=== PATIENT | male | born 1955 | race African-American/Black ===

== ENCOUNTER 2018-09-12 07:01 | Outpatient (CLI) | payer OTHER ==
[2018-09-12] VITALS (12 sets, daily range): BP systolic 107–121; BP diastolic 67–81
[~2018-09-12] VITALS: Ht 177.8 cm; Wt 104.3 kg
[2018-09-12] MEDS ORDERED: TIZA4TAB2 PO (08:14)
[2018-09-12] MEDS ORDERED: OLME1TAB23 PO (08:14)
[2018-09-12] MEDS ORDERED: OMEG1CAP6 PO (08:14)
[2018-09-12] MEDS ORDERED: NAPR-514 PO (08:14)
[2018-09-12] MEDS ORDERED: CHOL100013 PO (08:14)
[2018-09-12] MEDS ORDERED: MULT-697 PO (08:14)
[2018-09-12 08:42] LABS: BASO % 0 % (0-3); EOS # 0.2 x10^3/uL (0.0-0.7); EOS % 3 % (0-3); HEMOGLOBIN 15.9 g/dL (13.0-17.5); LYMPH # 1.5 x10^3/uL (1.0-4.8); LYMPH % 17 % (24-48); MEAN CORPUSCULAR HEMOGLOBIN 31 pg (25-35); MEAN CORPUSCULAR HGB CONC 34 g/dL (31-37); MEAN CORPUSCULAR VOLUME 91 fL (79-100); MONO # 0.6 x10^3/uL (0.0-1.1); MONO % 7 % (0-9); NEUT # 6.5 x10^3/uL (1.8-7.7); NEUT % 74 % (31-73); PLATELET COUNT 204 x10^3/uL (140-400); RED BLOOD COUNT 5.18 x10^6/uL (4.30-5.70); WHITE BLOOD COUNT 8.8 x10^3/uL (4.0-11.0)
[2018-09-12] MEDS ORDERED: fentaNYL PF VIAL 100 MCG/2 ML VIAL ONE (08:45)
[2018-09-12] MEDS ORDERED: LIDOCAINE WITH 8.4% SOD BICARB 3 ML DISP.SYRIN. ONE (08:45)
[2018-09-12] MEDS ORDERED: MIDAZOLAM HCL/PF 5 MG/5 ML VIAL. ONE (08:45)
[2018-09-12 09:04] LABS: PROTHROMBIN TIME PATIENT 12.6 SEC (11.7-14.0)
[2018-09-12] MEDS ORDERED: fentaNYL PF VIAL 100 MCG/2 ML VIAL IV ONE (09:15)
[2018-09-12] MEDS ORDERED: LIDOCAINE WITH 8.4% SOD BICARB 3 ML DISP.SYRIN. IJ ONE (09:15)
[2018-09-12] MEDS ORDERED: MIDAZOLAM HCL/PF 5 MG/5 ML VIAL. IV ONE (09:15)
--- NOTE | 2018-09-12 15:40 | RAD ---
EXAM: Chest, single view. HISTORY: Lung biopsy. COMPARISON: None. FINDINGS: A frontal view of the chest is obtained. There is a left upper lobe mass with suspected spiculated margins and extension to the overlying pleural, measuring 5.7 cm radiographically. No consolidation, pleural effusion or pneumothorax is seen. The heart is normal in size. IMPRESSION: Left upper lobe mass. Correlate with reported recent lung biopsy pathology findings and prior imaging. There is no available comparison study at the time of dictation. Electronically signed by: Alejandra Cortes MD (09/12/2018 3:37 PM) [place] [id number]
--- NOTE | 2018-09-13 07:50 | RAD ---
09/13/2018 7:44 AM Procedure: CT-guided biopsy, left upper lobe mass Indication: Left upper lobe mass extending from the hilum to the lung periphery Consent: The procedure was explained in its entirety to the patient or the patients designated collections representative by a member of the treatment team, including a discussion of the risks, benefits and commonly accepted alternatives to the procedure, as well as the expected consequences of no therapy whatsoever. Discussion of the risks included, but was not limited to, those that are most frequent and those that are rare but possibly severe or life-threatening, as well as the possibility of unforeseen complications. All elements of maximal sterile barrier technique including the use of a cap, mask, sterile gown, sterile gloves, large sterile sheet, appropriate hand hygiene, and 2% chlorhexidine for cutaneous antisepsis (or acceptable alternative antiseptic per current guidelines) were followed for this procedure. CT imaging was obtained redemonstrating the mass. Left upper chest prepped and draped using sterile barrier technique. 1% lidocaine was administered for anesthesia. Under intermittent CT guidance 17-gauge needles advanced mass. Core biopsy samples were obtained. [place] removed. Sterile dressings were applied. Sedation The procedure was performed under conscious sedation, including continuous cardiopulmonary monitoring via a dedicated sedation nurse. Face to face sedation time : 25 minutes Impression: CT-guided biopsy, left upper lobe mass PQRS Compliance Statement: One or more of the following individualized dose reduction techniques were utilized for this examination: 1. Automated exposure control 2. Adjustment of the mA and/or kV according to patient size 3. Use of iterative reconstruction technique
--- NOTE | 2018-09-13 15:07 | PATHOLOGY ---
[facility] Accession Number: [id number] . 01 Material submitted: . lung - LEFT LUNG MASS. Modifiers: left . 01 Clinical history: . Left lung mass upper lobe . 02 Diagnosis: Left lung mass, CT-guided needle biopsy: - ADENOCARCINOMA, MODERATELY WELL DIFFERENTIATED, WITH ASSOCIATED PULMONARY SCAR. SEE COMMENT. . (JPM:mml; 09/13/2018) [facility]/09/13/2018 . 02 Comment: Sections of the left lung mass CT-guided needle biopsy reveal a malignant epithelial neoplasm. The neoplasm is comprised of irregular glands, which infiltrate a pulmonary scar showing focal chronic inflammation and anthracotic pigment deposition. The neoplasm also focally has a papillary architecture. The malignant cells have modest amounts of eosinophilic cytoplasm, and possess enlarged, rounded to ovoid, nuclei containing small nucleoli. There is no normal lung parenchyma identified. 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 The case is also examined by Dr. Ciro Jimenez, who concurs with the diagnosis. . (JPM:mm; 09/13/2018) . 02 Electronically signed: . Roderick Proctor MD, Pathologist NPI- [id number] . 01 Gross description: . The specimen is received in formalin, labeled "Arnoldo Lopez, left lung biopsy". Received are multiple segments of pale hernandez to white-hernandez, friable soft tissue measuring 1.0 x 0.3 x 0.1 cm in aggregate dimensions. The specimen is filtered and entirely submitted in cassette A1. (CAA; 09/12/2018) QAC/QAC . 02 Pathologist provided ICD-10: C34.92 . 02 CPT . 042735 Specimen Comment: A courtesy copy of this report has been sent to Specimen Comment: [phone], . Specimen Comment: Report sent to / DR ISRAEL Performed at: [address], [place] [id number] MD Spencer Cheung MD Phone: [phone] [facility]formed [facility]: [facility] [address] [place], [place] [id number] MD Roderick Proctor MD Phone: [phone]
== END 2018-09-12 12:15 | disposition home or self-care (01) ==
LOC: INTRAD 07:01
PROVIDERS: ATTEND Internal Medicine Pulmonary Disease
DX: C34.92 Malignant neoplasm of unspecified part of left bronchus or lung (principal); Z79.01 Long term (current) use of anticoagulants
CPT/HCPCS: 32405; 36415; 71045; 77012; 85025; 85610; 85730; 88305; J2250; J3010; 99152

== ENCOUNTER 2018-09-29 09:52 | Day surgery (SDC) | payer OTHER ==
[~2018-09-29 09:52] MED LIST: CHOL100013 PO; HYDROmorphone 2 MG/ML VIAL IV PRN; IV RINGERS,LACTATED 1000ML 1,000 ML IV SCH; LIDOCAINE 1% PF 2 ML VIAL. ID PRN; MIDAZOLAM HCL/PF 2 MG/2 ML VIAL. ONE; MORPHINE SULFATE 2 MG/ML VIAL. IV PRN; MULT-697 PO; NAPR-514 PO; OLME1TAB23 PO; OMEG1CAP6 PO; ONDANSETRON PF 4 MG/2 ML VIAL. IV PRN; PROCHLORPERAZINE 10 MG/2 ML VIAL. IV PRN; PROPOFOL 50 ML IV ONE; TIZA4TAB2 PO; fentaNYL PF VIAL 100 MCG/2 ML VIAL IV PRN; fentaNYL PF VIAL 100 MCG/2 ML VIAL ONE
[2018-09-29] MEDS ORDERED: GADOTERATE 5 MMOL/10ML VIAL. IVP ONE ×2 (12:15)
[2018-09-29] MEDS ORDERED: GADOTERATE 5 MMOL/10ML VIAL. ONE ×2 (12:30)
--- NOTE | 2018-09-29 13:01 | RAD ---
PET ONCOLOGY CLINICAL INDICATION: Left lung lesion.. PET for initial treatment strategy. FDG PET-CT of the Body TECHNIQUE: The patient received an IV injection of 14.9 mCi 18F-FDG in the left antecubital fossa. After an initial uptake phase of approximately 60-90 minutes, a CT scan without oral contrast, without IV contrast was acquired. Subsequently, positron emission tomography images from the skull base to mid thigh were obtained. CT, PET and fused images were reconstructed in transaxial, coronal, and sagittal projections and interpreted from a workstation. The patient's plasma glucose was 120 mg/dl. PRIOR STUDIES: No prior studies CORRELATIVE STUDIES: There are no appropriate correlative studies FINDINGS: CT: Please note that CT is obtained for anatomic correlation. Limited exam due to lack of IV contrast. Noncontrast appearance of the visualized sections through the brain and orbits are within normal limits. Contrast appearance of the nasopharynx, oropharynx and hypopharynx within normal limits. No enlarged deep cervical adenopathy. Noncontrast appearance of the submandibular glands, parotid glands and thyroid within normal limits. Redemonstrated is a large area of consolidation in the left upper lobe extending to the pleura measuring 8.1 x 5.8 cm. Also extends to the left hilum. 3 mm nodule in the right lower lobe anteriorly (series 3 image 101). 1.6 x 0.9 cm right axillary lymph node is seen. Multiple mediastinal lymph nodes are seen, the largest measuring 1.5 x 1.4 cm. Evaluation of hilar lymphadenopathy is limited due to lack of IV contrast. Noncontrast appearance of the liver, spleen, pancreas, adrenals and kidneys within normal limits. Gallstone noted. No enlarged retroperitoneal or pelvic adenopathy. No free pelvic fluid or ascites. Prostate is nonenlarged. No bowel obstruction. Normal appendix. Urinary bladder demonstrates no radiopaque stone. No suspicious bony lesion. PET: Mild increased pelvic activity seen in the left upper lobe masslike consolidation with SUV max of 5.0. Mildly increased metabolic activity seen in the left hilum likely in a lymph node with SUV max of 3.4. IMPRESSION: PET-CT from the skull base to mid thigh demonstrates: 1. Mild increased metabolic activity in the left upper lobe masslike consolidation. Clinically correlate with biopsy results. 2. Mild increased metabolic activity in the left hilum likely intramammary lymph node which may be reactive or metastatic. Electronically signed by: Valdemar Ayala DO (09/29/2018 12:58 PM) [facility]
[2018-09-29 13:15] VITALS: BP 130/79
--- NOTE | 2018-09-29 14:03 | RAD ---
BRACHIAL PLEXUS WO/W CHEST History: Left posterior shoulder pain. History of lung cancer. Technique: Multiplanar multisequence MRI of the brachial plexus without and with contrast. Contrast: 20 mL Dotarem. Comparison: PET/CT September 29, 2018 Findings: No evidence of pathologic signal abnormality or enhancement along the course of the left brachial plexus. No pathologic lymphadenopathy or mass. Left upper lobe consolidation, better characterized on dedicated PET/CT performed the same day. No evidence of chest wall invasion. No involvement of the adjacent ribs. Multilevel poorly characterize degenerative changes of the cervical spine. No pathologic marrow replacing process. Impression: 1. No pathologic signal abnormality or enhancement along the left brachial plexus. 2. Left upper lung consolidative mass. See dedicated PET CT for further details. Electronically signed by: Bk Lake DO (09/29/2018 2:00 PM) [id number]
== END 2018-09-29 13:44 | disposition home or self-care (01) ==
LOC: SURG 09:52 → PETSC 13:44
PROVIDERS: ATTEND Internal Medicine Pulmonary Disease
DX: R91.1 Solitary pulmonary nodule (principal); M47.892 Other spondylosis, cervical region; R59.9 Enlarged lymph nodes, unspecified; I10 Essential (primary) hypertension; F17.210 Nicotine dependence, cigarettes, uncomplicated; M19.90 Unspecified osteoarthritis, unspecified site; Z85.118 Personal history of other malignant neoplasm of bronchus and lung
CPT/HCPCS: 71552; 78815; A9552; A9575; J2250; J2704; J3010

== ENCOUNTER → 2018-10-24 | Outpatient (CLI) | payer OTHER ==
[2018-09-29 13:15] VITALS: BP 130/79
[~2018-10-24] MED LIST changes: +GADOTERATE 7.5 MMOL/15ML VIAL. IVP ONE; -HYDROmorphone 2 MG/ML VIAL IV PRN; -IV RINGERS,LACTATED 1000ML 1,000 ML IV SCH; -LIDOCAINE 1% PF 2 ML VIAL. ID PRN; -MORPHINE SULFATE 2 MG/ML VIAL. IV PRN; -ONDANSETRON PF 4 MG/2 ML VIAL. IV PRN; -PROCHLORPERAZINE 10 MG/2 ML VIAL. IV PRN; +PROPOFOL 0 ML IV ONE; -PROPOFOL 50 ML IV ONE; -fentaNYL PF VIAL 100 MCG/2 ML VIAL IV PRN; -fentaNYL PF VIAL 100 MCG/2 ML VIAL ONE
--- NOTE | 2018-10-24 16:05 | RAD ---
MRI of the Brain without and with Contrast 10/24/2018 Clinical History: Lung cancer. Technique: Unenhanced T1-weighted sagittal and axial and FLAIR, T2-weighted, gradient echo and diffusion-weighted axial images of the brain were obtained. After the intravenous administration of 21 cc of Gadavist, enhanced T1-weighted axial, sagittal and coronal images of the brain were obtained. Findings: Comparison is made to the patient's PET/CT scan dated 09/29/2018. There is generalized parenchymal atrophy. Patchy and several small focal areas of abnormally increased signal intensity are seen within the periventricular and subcortical white matter of both cerebral hemispheres on the FLAIR and T2-weighted images consistent with areas of very mild small vessel ischemic disease. No acute parenchymal abnormality is seen. No abnormal area of contrast enhancement is noted. No extra-axial fluid collection is seen. There is no MRI evidence of acute ischemia/infarction. Mild to moderate mucosal thickening is seen throughout the paranasal sinuses. Normal flow voids are seen within the major vascular structures surrounding the brain parenchyma. Impression: No acute parenchymal abnormality is seen. There is no MRI evidence of metastatic disease involving the brain parenchyma. Electronically signed by: Jaime Barnhart MD (10/24/2018 4:01 PM) [id number]
== END | disposition home or self-care (01) ==
LOC: MRI 15:02
PROVIDERS: ATTEND Internal Medicine Hematology & Oncology
DX: C34.12 Malignant neoplasm of upper lobe, left bronchus or lung (principal); G31.89 Other specified degenerative diseases of nervous system; M89.8X9 Other specified disorders of bone, unspecified site
CPT/HCPCS: 70553; A9575; J2250; J2704

== ENCOUNTER → 2018-11-10 | Outpatient (CLI) | payer OTHER ==
[~2018-11-10] VITALS: Ht 177.8 cm; Wt 107.5 kg
[2018-11-10] VITALS (7 sets, daily range): BP systolic 119–135; BP diastolic 71–86
[~2018-11-10] MED LIST changes: +CISP50VI IV; +ETOP20VI2 IV; -GADOTERATE 7.5 MMOL/15ML VIAL. IVP ONE; +HEPARIN PF 500 UNIT/5 ML DISP.SYRIN. IVP ONE; +HEPARIN PF 500 UNIT/5 ML DISP.SYRIN. ONE; +LIDOCAINE 1%/EPI 1:100,000 20 ML VIAL. ONE; +LIDOCAINE 1%/EPI 1:100,000 20 ML VIAL. SQ ONE; +MIDAZOLAM HCL/PF 2 MG/2 ML VIAL. IV ONE; -PROPOFOL 0 ML IV ONE; +ceFAZolin 1GM IVPB FOR OMNI 100 ML IV ONE; +fentaNYL PF VIAL 100 MCG/2 ML VIAL IV ONE; +fentaNYL PF VIAL 100 MCG/2 ML VIAL ONE
[2018-11-10 07:41] LABS: BASO % 1 % (0-3); EOS # 0.2 x10^3/uL (0.0-0.7); EOS % 3 % (0-3); HEMATOCRIT 42.4 % (39.0-53.0); HEMOGLOBIN 14.2 g/dL (13.0-17.5); LYMPH # 1.4 x10^3/uL (1.0-4.8); LYMPH % 20 % (24-48); MEAN CORPUSCULAR HEMOGLOBIN 30 pg (25-35); MEAN CORPUSCULAR HGB CONC 33 g/dL (31-37); MEAN CORPUSCULAR VOLUME 91 fL (79-100); MONO # 0.5 x10^3/uL (0.0-1.1); MONO % 8 % (0-9); NEUT # 4.7 x10^3/uL (1.8-7.7); NEUT % 69 % (31-73); PLATELET COUNT 186 x10^3/uL (140-400); RED BLOOD COUNT 4.66 x10^6/uL (4.30-5.70); RED CELL DISTRIBUTION WIDTH 14.2 % (11.5-14.5); WHITE BLOOD COUNT 6.8 x10^3/uL (4.0-11.0)
[2018-11-10 07:47] LABS: PROTHROMBIN TIME PATIENT 13.1 SEC (11.7-14.0)
--- NOTE | 2018-11-10 09:42 | RAD ---
Procedure: Port-A-Cath placement Clinical Indication: Adult male lung cancer Sedation: Conscious sedation was administered with a total intraprocedural [id number] time of 28 minutes. The patient was monitored by a qualified independent observer throughout the time of sedation. Please refer to the medical record for exact doses of medications utilized to achieve moderate sedation. Antibiotics: Antibiotic was administered intravenously within 1 hour of the procedure start time. Exposure: Fluoro Time: 1.2 minutes Images: 1 Contrast: None Sterility: All elements of maximal sterile barrier technique including the use of a cap, mask, sterile gown, sterile gloves, large sterile sheet, appropriate hand hygiene, and 2% chlorhexidine for cutaneous antisepsis (or acceptable alternative antiseptic per current guidelines) were followed for this procedure. Consent: The procedure was explained in its entirety to the patient or the patients designated customer support representative by a member of the treatment team, including a discussion of the risks, benefits and commonly accepted alternatives to the procedure, as well as the expected consequences of no therapy whatsoever. Discussion of the risks included, but was not limited to, those that are most frequent and those that are rare but possibly severe or life-threatening, as well as the possibility of unforeseen complications. Technique and Findings: Ultrasound interrogation of the right neck revealed patency and compressibility of the internal jugular vein. A hardcopy ultrasound image was recorded as a 21-gauge micropuncture needle was used to gain access to this vessel. The needle was exchanged over a wire for a peel-away sheath. The skin over the ipsilateral anterior chest wall was then copiously anesthetized with 1% lidocaine plus epinephrine, and a small dermatotomy was made. Blunt dissection techniques were used to create a pocket for the port. The port was then tunneled subcutaneously towards the neck dermatotomy then deployed under fluoroscopic guidance through the peel-away sheath such that the distal tip resided in the proximal right atrium. The port was accessed and found to flush and aspirate with ease. The port was packed with heparin. The pocket was copiously irrigated with sterile saline then closed with deep interrupted and running subcuticular 4-0 Vicryl suture. Dermabond was used to close the neck dermatotomy. Complications: No immediate Impression: 1. Ultrasound and fluoroscopic guided right IJ Port-A-Cath placement as described.
--- NOTE | 2018-11-10 12:34 | NUR ---
Discharge instructions and discharge home medications reviewed with Patient and a copy given. All questions have been answered and understanding verbalized. The following instructions and handouts were given on moderate sedation and port cath placement care. Discontinued PIV.Patient discharged to home with self caer accompanied by spouse.
== END | disposition home or self-care (01) ==
LOC: INTRAD 06:55
PROVIDERS: ATTEND Internal Medicine Hematology & Oncology
DX: C34.12 Malignant neoplasm of upper lobe, left bronchus or lung (principal); Z79.899 Other long term (current) drug therapy
CPT/HCPCS: 36415; 36561; 76937; 77001; 85025; 85610; 85730; C1751; C1769; C1892; J0690; J1644; J2250; J3010; J3490; 99152; 99153

== ENCOUNTER 2019-09-05 07:05 | Outpatient (CLI) | payer OTHER ==
[~2019-09-05] VITALS: Ht 180.3 cm; Wt 107.5 kg
[2019-09-05] VITALS (12 sets, daily range): BP systolic 118–156; BP diastolic 71–94
[~2019-09-05 07:05] MED LIST changes: +GABA-689 PO; -HEPARIN PF 500 UNIT/5 ML DISP.SYRIN. IVP ONE; -HEPARIN PF 500 UNIT/5 ML DISP.SYRIN. ONE; -LIDOCAINE 1%/EPI 1:100,000 20 ML VIAL. ONE; -LIDOCAINE 1%/EPI 1:100,000 20 ML VIAL. SQ ONE; +METO-239 PO; +METO25TA4 PO; -MIDAZOLAM HCL/PF 2 MG/2 ML VIAL. IV ONE; -MIDAZOLAM HCL/PF 2 MG/2 ML VIAL. ONE; +OXYC5CAP PO; -ceFAZolin 1GM IVPB FOR OMNI 100 ML IV ONE; -fentaNYL PF VIAL 100 MCG/2 ML VIAL IV ONE; -fentaNYL PF VIAL 100 MCG/2 ML VIAL ONE
[2019-09-05 07:54] LABS: BASO % 0 % (0-3); EOS # 0.1 x10^3/uL (0.0-0.7); EOS % 2 % (0-3); HEMATOCRIT 34.4 % (39.0-53.0); HEMOGLOBIN 11.6 g/dL (13.0-17.5); LYMPH # 0.8 x10^3/uL (1.0-4.8); LYMPH % 14 % (24-48); MEAN CORPUSCULAR HEMOGLOBIN 31 pg (25-35); MEAN CORPUSCULAR HGB CONC 34 g/dL (31-37); MEAN CORPUSCULAR VOLUME 91 fL (79-100); MONO # 0.5 x10^3/uL (0.0-1.1); MONO % 8 % (0-9); NEUT # 4.2 x10^3/uL (1.8-7.7); NEUT % 75 % (31-73); PLATELET COUNT 171 x10^3/uL (140-400); RED BLOOD COUNT 3.79 x10^6/uL (4.30-5.70); WHITE BLOOD COUNT 5.6 x10^3/uL (4.0-11.0)
[2019-09-05 08:03] LABS: PROTHROMBIN TIME PATIENT 12.7 SEC (11.7-14.0)
[2019-09-05] MEDS ORDERED: LIDOCAINE WITH 8.4% SOD BICARB 3 ML DISP.SYRIN. ONE ×2 (08:06)
[2019-09-05] MEDS ORDERED: MIDAZOLAM HCL/PF 2 MG/2 ML VIAL. ONE ×2 (08:29→09:01)
[2019-09-05] MEDS ORDERED: fentaNYL PF VIAL 100 MCG/2 ML VIAL ONE ×2 (08:30→09:02)
[2019-09-05] MEDS ORDERED: fentaNYL PF VIAL 100 MCG/2 ML VIAL IV ONE (08:45)
[2019-09-05] MEDS ORDERED: LIDOCAINE WITH 8.4% SOD BICARB 3 ML DISP.SYRIN. IJ ONE (08:45)
[2019-09-05] MEDS ORDERED: MIDAZOLAM HCL/PF 2 MG/2 ML VIAL. IV ONE (08:45)
--- NOTE | 2019-09-05 10:48 | NUR ---
Discharge Note: [facility] Discharge instructions and discharge home medications reviewed with Patient and ; and a copy given. All questions have been answered and understanding verbalized. The following instructions and handouts were given: Moderate sedation and incision care. Discontinued lines and drains: Right Powerport access dc'd and tip intact. Patient discharged to home with via personal vehicle.
--- NOTE | 2019-09-06 16:05 | RAD ---
Attempted CT-guided biopsy, 6 mm nodule, right lower lobe. COMPARISON STUDY: CT of the chest August 23, 2019. Discussion: Discussion: The procedure was explained in its entirety to the patient or the patients designated financial sales representative by a member of the treatment team, including a discussion of the risks, benefits and commonly accepted alternatives to the procedure, as well as the expected consequences of no therapy whatsoever. Discussion of the risks included, but was not limited to, those that are most frequent and those that are rare but possibly severe or life-threatening, as well as the possibility of unforeseen complications. All elements of maximal sterile barrier technique including the use of a cap, mask, sterile gown, sterile gloves, large sterile sheet, appropriate hand hygiene, and 2% chlorhexidine for cutaneous antisepsis (or acceptable alternative antiseptic per current guidelines) were followed for this procedure. CT imaging demonstrates a 6 mm nodule in the subpleural right lower lobe along the major fissure. The patient was prepped and draped using sterile barrier technique as above. 1% lidocaine was administered to the overlying skin and soft tissues. Sedation was administered. A 17-gauge needle was advanced towards the pleural edge. The nodules found to be highly mobile. Patient was unable to keep his arms elevated secondary to shoulder pain. Given technical difficulties, and 6 mm nodule size the likelihood of success was deemed to be exceedingly low and the procedure was terminated. The procedures performed under conscious sedation including continuous cardiopulmonary monitoring via dedicated sedation nurse. Cowp-nd-avqz sedation time: 30 minutes Impression: Unsuccessful attempt at CT-guided biopsy of the 6 mm right lower lobe nodule PQRS Compliance Statement: One or more of the following individualized dose reduction techniques were utilized for this examination: 1. Automated exposure control 2. Adjustment of the mA and/or kV according to patient size 3. Use of iterative reconstruction technique
== END 2019-09-05 10:52 | disposition home or self-care (01) ==
LOC: INTRAD 07:05
PROVIDERS: ATTEND Internal Medicine Hematology & Oncology
DX: R91.8 Other nonspecific abnormal finding of lung field (principal); Z79.01 Long term (current) use of anticoagulants; Z79.899 Other long term (current) drug therapy
CPT/HCPCS: 32405; 36415; 77012; 85025; 85610; 99152; 99153; J2250; J3010; J3490